=== PATIENT | male | born 1995 | race Caucasian/White ===

== ENCOUNTER 2018-02-01 17:05 | Emergency (ER) | payer SELFPAY ==
[~2018-02-01] VITALS: Ht 172.7 cm; Wt 63.6 kg
[2018-02-01 17:54] VITALS: BP 124/71; Ht 172.7 cm; Wt 63.6 kg
[2018-02-01] MEDS ORDERED: BACTRIM DS TABL1 TAB PO (22:15)
[2018-02-01] MEDS ORDERED: VOLTAREN75 MG PO (22:16)
== END 2018-02-01 22:34 | disposition home or self-care (01) ==
LOC: D.ER 17:05
DX: L03.111 Cellulitis of right axilla (principal)